=== PATIENT | male | born 1960 | race Caucasian/White ===

== ENCOUNTER 2016-12-14 11:48 | Emergency (ER) | payer BC, SELFPAY ==
[~2016-12-14] VITALS: Ht 177.8 cm; Wt 118.1 kg
[2016-12-14] MEDS ORDERED: [UNRECOGNIZED DRUG - REMARK] (11:59)
[2016-12-14] MEDS ORDERED: LIPI20TA PO (12:57)
[2016-12-14] MEDS ORDERED: NORCOTAB PO (14:09)
--- NOTE | 2016-12-14 14:12 | REP ---
Clinical: Trauma. Technique: Frontal view of the chest with multiple views of the left hemithorax. Findings: Frontal view of the chest demonstrates right lower lobe atelectasis. Multiple views of the left hemithorax demonstrates no obvious acute rib fracture or pathology. Impression: Right basilar atelectasis. No left rib fracture. Signed by Calderon Bridges MD 12/14/2016 02:04 P
[2016-12-14 14:49] VITALS: BP 131/67
== END 2016-12-14 14:51 | disposition home or self-care (01) ==
LOC: M ED 11:48
DX: S20.212A Contusion of left front wall of thorax, initial encounter (principal); W01.0XXA Fall on same level from slipping, tripping and stumbling without subsequent striking against object, initial encounter; Y92.89 Other specified places as the place of occurrence of the external cause; Y93.89 Activity, other specified; Y99.8 Other external cause status; Z87.891 Personal history of nicotine dependence; Z79.01 Long term (current) use of anticoagulants; Z79.899 Other long term (current) drug therapy; Z95.5 Presence of coronary angioplasty implant and graft